=== PATIENT | female | born 1965 | race Caucasian/White ===

== ENCOUNTER 2016-08-22 13:39 | Emergency (ER) | payer OTHER ==
[~2016-08-22] VITALS: Ht 157.5 cm; Wt 72.6 kg
[~2016-08-22 13:39] MED LIST: ALBUTEROL INHAL17 GM; ALBUTEROL2.5 MG/0.1 INH; ALBUTEROL2.5 MG/0.5 IH; AZITHROMYCIN 2250 MG PO; CEFTIN500 MG PO; CEPACOL SORE T1 EAC7 PO; CLARITIN10 MG PO; DUONEB 2.5-0.5 M3 ML INH; FLONASE 0.05%50 MCG NASAL; NORCO 5-325 TA1 EACH PO; PREDNISONE 10 M10 MG; PREDNISONE 20 M20 MG PO; PROVENTIL HFA6.7 G1 INH; RESTORIL15 MG PO; TYLENOL325 MG PO; VENTOLIN HFA INH8 GM INH; ZPAK PO
[2016-08-22] MEDS ORDERED: PREDNISONE 20 M20 MG PO (15:59)
== END 2016-08-22 16:07 | disposition home or self-care (01) ==
LOC: ER 13:39
DX: J45.901 Unspecified asthma with (acute) exacerbation (principal); F10.99 Alcohol use, unspecified with unspecified alcohol-induced disorder; Z90.49 Acquired absence of other specified parts of digestive tract; Z98.890 Other specified postprocedural states